=== PATIENT | female | born 1980 | race Hispanic/Latino ===

== ENCOUNTER 2017-03-30 12:10 | Emergency (ER) | payer OTHER ==
[2017-03-30 12:22] VITALS: BP 116/75; PULSE 101; RESP 18; TEMP 99.1; O2SAT 100
--- NOTE | 2017-03-30 13:10 | ED PDOC ---
HPI: General Adult Time Seen by Provider: 03/30/17 12:27 Chief Complaint (Nursing): Abnormal Skin Integrity Chief Complaint (Provider): Laceration to left 2nd digit History Per: Patient History/Exam Limitations: no limitations Onset/Duration Of Symptoms: Mins Have you had recent travel within the past 21 days to any of the following countries: [place], [place], [place] or [place]?: No Current Symptoms Are (Timing): Still Present Additional Complaint(s): The patient is a 36 y/o female, right hand dominant, past medical history of seizure disorder who presents to the ED for evaluation of laceration sustained to her left 2nd digit while cutting an avocado prior to arrival. Patient reports she took dilaudid after injury ocurred which she has at home for chronic pain. She additionally reports her last tetanus shot was 3 years ago. Patient currently denies any other medical complaints. She denies any associated numbnes or tingling to affected area. Past Medical History Reviewed: Historical Data, Nursing Documentation, Vital Signs Vital Signs: Last Vital Signs Temp 99.1 F 03/30/17 12:21 Pulse 101 H 03/30/17 12:21 Resp 18 03/30/17 12:21 BP 116/75 03/30/17 12:21 Pulse Ox 100 03/30/17 13:33 - Medical History PMH: Malignancy (brain CA), Seizures - Surgical History Other surgeries: Brain surgery x 4 - Family History Family History: States: No Known Family Hx, Unknown Family Hx - Living Arrangements Living Arrangements: With Family - Social History Current smoker - smoking cessation education provided: No Alcohol: None Drugs: Denies - Immunization History Hx Tetanus Toxoid Vaccination: Yes (last updated 3 years ago) - Home Medications Home Medications: Ambulatory Orders Medication Instructions Recorded Clonazepam [Klonopin] 0.5 mg PO BID 03/30/16 LORazepam [Ativan] 1 mg PO Q6 PRN 03/30/16 Lacosamide [Vimpat] 150 mg PO BID 03/30/16 Lamotrigine [Lamictal] 250 mg PO BID 03/30/16 - Allergies Allergies/Adverse Reactions: Allergies Allergy/AdvReac Type Severity Reaction Status Date / Time Sulfa (Sulfonamide Allergy RASH Verified 03/30/17 12:18 Antibiotics) Review of Systems ROS Statement: Except As Marked, All Systems Reviewed And Found Negative Skin: Positive for: Other (laceration to left 2nd digit) Physical Exam - Reviewed Nursing Documentation Reviewed: Yes Vital Signs Reviewed: Yes - Physical Exam Appears: Positive for: Well, Non-toxic, No Acute Distress Head Exam: Positive for: ATRAUMATIC, NORMAL INSPECTION, NORMOCEPHALIC Skin: Positive for: Normal Color Eye Exam: Positive for: Normal appearance Respiratory: Negative for: Respiratory Distress Extremity: Positive for: Normal ROM, Other (1.0 cm superficial laceration to left 2nd digit; minimal active bleeding. Full ROM of affected digit. Normal distal sensation) Neurologic/Psych: Positive for: Alert, Oriented - ECG O2 Sat by Pulse Oximetry: 100 (RA) Pulse Ox Interpretation: Normal Medical Decision Making Medical Decision Making: Time: 1235 Impression: Superficial laceration to left 2nd digit Plan: * Laceration to be repaired with dermabond Procedure note: Verbal consent was obtained for the procedure. Under sterile conditions, dermabond was used to close wound, good wound closure was achieved with dermabond, closure was then reinforced with steri-strips. Procedure was tolerated well by patient, no complications. Patient given detailed wound care instruction. Scribe Attestation: Documented by Kelsey Narayan acting as a scribe for RACHAEL Corona Provider Attestation: All medical record entries made by the Scribe were at my direction and personally dictated by me. I have reviewed the chart and agree that the record accurately reflects my personal performance of the history, physical exam, medical decision making, and the department course for this patient. I have also personally directed, reviewed, and agree with the discharge instructions and disposition. Disposition - Clinical Impression Clinical Impression: Finger laceration - Patient ED Disposition Is Patient to be Admitted: No Counseled Patient/Family Regarding: Diagnosis, Need For Followup - Disposition Referrals: [facility] [Outside] Disposition: Routine/Home Disposition Time: 13:58 Condition: STABLE Additional Instructions: Keep area clean and dry Allow steri-strips and excess glue to flake off on their own Wound check in 2-3 days Instructions: Finger Laceration (ED), Skin Adhesive Care (ED)
== END 2017-03-30 14:48 | disposition home or self-care (01) ==
LOC: H.ER 12:10
DX: S61.201A Unspecified open wound of left index finger without damage to nail, initial encounter (principal); W26.0XXA Contact with knife, initial encounter; Y92.89 Other specified places as the place of occurrence of the external cause; G40.909 Epilepsy, unspecified, not intractable, without status epilepticus; Z85.841 Personal history of malignant neoplasm of brain

== ENCOUNTER 2017-04-23 12:17 | Observation (INO) | payer OTHER ==
[2017-04-23 12:21] VITALS: BMI 20.8
--- NOTE | 2017-04-23 12:54 | ED PDOC ---
HPI: Seizure Time Seen by Provider: 04/23/17 12:26 Chief Complaint (Nursing): Seizure Chief Complaint (Provider): Seizure History Per: Patient, EMS History/Exam Limitations: no limitations Recent Seizure Activity Began: Just Before Arrival Number Of Seizures: One Length Of Seizures (Duration): Minutes (30) Quality Of Seizure: Generalized Additional Complaint(s): Bonny is a 36 y/o female who was brought by EMS for prolonged seizure lasting 30 minutes. Seizure was witnessed by EMS as generalized tonic-clonic, involving upper and lower extremities bilaterally. Patient has history of brain tumor with recurrent seizures, however current seizure is different than previous seizures. Previous seizures described as focal and left-sided lasting 2-3 minutes, as opposed to generalized today. Patient took sublingual Klonopin and PO Ativan, but seizure did not earline. Denies injury and biting tongue. PMD: Unknown Past Medical History Reviewed: Historical Data, Nursing Documentation, Vital Signs Vital Signs: Last Vital Signs Temp 99.8 F H 04/23/17 12:20 Pulse 100 H 04/23/17 12:20 Resp 16 04/23/17 12:20 BP 104/69 04/23/17 12:20 Pulse Ox 97 04/23/17 14:57 - Medical History PMH: Malignancy (Anaplastic ependymoma ), Seizures - Surgical History Other surgeries: s/p resection of brain cancer x3 - Family History Family History: States: Unknown Family Hx - Immunization History Hx Tetanus Toxoid Vaccination: Yes (last updated 3 years ago) - Home Medications Home Medications: Ambulatory Orders Medication Instructions Recorded Clonazepam [Klonopin] 0.5 mg PO BID 03/30/16 LORazepam [Ativan] 1 mg PO Q6 PRN 03/30/16 Lacosamide [Vimpat] 150 mg PO BID 03/30/16 Lamotrigine [Lamictal] 250 mg PO BID 03/30/16 - Allergies Allergies/Adverse Reactions: Allergies Allergy/AdvReac Type Severity Reaction Status Date / Time acetaminophen [From Vicodin] Allergy RASH Verified 04/23/17 12:45 hydrocodone [From Vicodin] Allergy RASH Verified 04/23/17 12:45 levetiracetam [From Keppra] Allergy RASH Verified 04/23/17 12:45 Sulfa (Sulfonamide Allergy RASH Verified 03/30/17 12:18 Antibiotics) sulfamethoxazole Allergy RASH Verified 04/23/17 12:45 [From Bactrim] trimethoprim [From Bactrim] Allergy RASH Verified 04/23/17 12:45 Review of Systems ROS Statement: Except As Marked, All Systems Reviewed And Found Negative Neurological: Positive for: Seizures (lasting 30 minutes). Negative for: Other (biting tongue, injury) Physical Exam - Reviewed Nursing Documentation Reviewed: Yes Vital Signs Reviewed: Yes - Physical Exam Appears: Positive for: Non-toxic, No Acute Distress Head Exam: Positive for: ATRAUMATIC, NORMAL INSPECTION (graft and artificial hair in place, no injury or bleeding noted), NORMOCEPHALIC Skin: Positive for: Normal Color, Warm, Dry Eye Exam: Positive for: Normal appearance, EOMI Neck: Positive for: Normal, Painless ROM, Supple Cardiovascular/Chest: Positive for: Regular Rate, Rhythm. Negative for: Murmur Respiratory: Positive for: Normal Breath Sounds. Negative for: Accessory Muscle Use, Respiratory Distress Gastrointestinal/Abdominal: Positive for: Normal Exam, Soft. Negative for: Tenderness Back: Positive for: Normal Inspection. Negative for: Vertebral Tenderness, Other (Deformity) Extremity: Positive for: Normal ROM, Other (Left upper and lower extremity weakness (old)) Neurologic/Psych: Positive for: Alert, Oriented (x 3) - Laboratory Results Result Diagrams: 04/23/17 12:10 04/23/17 12:10 - ECG O2 Sat by Pulse Oximetry: 97 (RA) Pulse Ox Interpretation: Normal Medical Decision Making Medical Decision Making: Time: 12:45 Initial Plan: --CMP --CBC w/ differential --ED Urine --Pending Head CT w/o contrast --Reevaluation Time: 14:[address] w/o contrast: FINDINGS: HEMORRHAGE: Heterotopic calcification is favored over hemorrhage within the subcortical white matter of a few sulci at the right frontal vertex. The patient is status post right frontal craniotomy with a bit of air identified. There is a 1.1 x 1.6 region of prominent lucency at the posterior margins of the prior operative site which measures 1.1 x 1.6 cm and 95 Hounsfield units compared to -1000 for air. This represents fat. Likely post radiation related vasogenic edema or reaction is seen in the white matter throughout the vast majority of the right frontal lobe however there only limited mass effect with the right lateral ventricle symmetric when compared to the left. The sulci arm mildly effaced at the right frontal lobe. Posterior fossa contents are stable with the left cerebral hemisphere normal. BRAIN: As above. VENTRICLES: Unremarkable. No hydrocephalus. CALVARIUM: Unremarkable. PARANASAL SINUSES: Unremarkable as visualized. No significant inflammatory changes. MASTOID AIR CELLS: Unremarkable as visualized. No inflammatory changes. OTHER FINDINGS: None. IMPRESSION: [id number] but expansive reaction/vasogenic edema affects the right frontal lobe status post right frontal surgery and craniotomy probably on the basis of post radiation change in this patient with prior surgery for brain tumor right frontal lobe. Acute intracranial hemorrhage is not favored as likely heterotopic calcifications seen the subcortical sulci and minimally at the right frontal vertex. Follow-up CT is advised. A small amount of fat is seen filling the likely postoperative bed at the right frontal vertex posteriorly. Scribe Attestation: Documented by Evonne Steel, acting as a scribe for Sigifredo Lazar MD Provider Scribe Attestation: All medical record entries made by the Scribe were at my direction and personally dictated by me. I have reviewed the chart and agree that the record accurately reflects my personal performance of the history, physical exam, medical decision making, and the department course for this patient. I have also personally directed, reviewed, and agree with the discharge instructions and disposition. Disposition - Clinical Impression Clinical Impression: Seizure disorder, Recurrent seizures - Patient ED Disposition Is Patient to be Admitted: Yes - Disposition Disposition Time: 15:10 Condition: FAIR Forms: Exhibition A ([place]) - Pt Status Changed To: Hospital Disposition Of: Observation - POA Present On Arrival: None
[2017-04-23 13:00] LABS: BASO # 0.1 K/uL (0.0-0.2); BASO % 0.9 % (0.0-2.0); EOS % 0.3 % (0.0-4.0); HEMOGLOBIN 10.5 g/dL (12.0-16.0); LYMPH # 1.1 K/uL (1.0-4.3); LYMPH % 17.4 % (20.0-40.0); MEAN CELL VOLUME 78.6 fl (81.0-99.0); MEAN CORPUSCULAR HEMOGLOBIN 25.2 pg (27.0-31.0); MEAN CORPUSCULAR HGB CONC 32.1 g/dL (33.0-37.0); MEAN PLATELET VOLUME 7.8 fl (7.2-11.7); MONO # 0.5 K/uL (0.0-0.8); MONO % 7.1 % (0.0-10.0); NEUT # 4.9 K/uL (1.8-7.0); NEUT % 74.3 % (50.0-75.0); RBC 4.17 Mil/uL (3.80-5.20); WHITE BLOOD COUNT 6.6 K/uL (4.8-10.8)
[2017-04-23 13:11] LABS: ALB/GLOB RATIO 1.7 (1.0-2.1); ALBUMIN 4.6 g/dL (3.5-5.0); ALT/SGPT 37 U/L (9-52); AST/SGOT 28 U/L (14-36); BLOOD UREA NITROGEN 13 mg/dl (7-17); CALCIUM 9.6 mg/dL (8.4-10.2); GFR AFRICAN-AMERICAN > 60; GFR NON-AFRICAN AMERICAN > 60
--- NOTE | 2017-04-23 14:51 | CT ---
PROCEDURE: CT HEAD WITHOUT CONTRAST. HISTORY: seizure h/o brain tumor COMPARISON: Brain MRI 12/18/[address] 12/17/2013. TECHNIQUE: Axial computed tomography images were obtained through the head/brain without intravenous contrast. Radiation dose: Total exam DLP = 960 mGy-cm. This CT exam was performed using one or more of the following dose reduction techniques: Automated exposure control, adjustment of the mA and/or kV according to patient size, and/or use of iterative reconstruction technique. FINDINGS: HEMORRHAGE: Heterotopic calcification is favored over hemorrhage within the subcortical white matter of a few sulci at the right frontal vertex. The patient is status post right frontal craniotomy with a bit of air identified. There is a 1.1 x 1.6 region of prominent lucency at the posterior margins of the prior operative site which measures 1.1 x 1.6 cm and 95 Hounsfield units compared to -1000 for air. This represents fat. Likely post radiation related vasogenic edema or reaction is seen in the white matter throughout the vast majority of the right frontal lobe however there only limited mass effect with the right lateral ventricle symmetric when compared to the left. The sulci arm mildly effaced at the right frontal lobe. Posterior fossa contents are stable with the left cerebral hemisphere normal. BRAIN: As above. VENTRICLES: Unremarkable. No hydrocephalus. CALVARIUM: Unremarkable. PARANASAL SINUSES: Unremarkable as visualized. No significant inflammatory changes. MASTOID AIR CELLS: Unremarkable as visualized. No inflammatory changes. OTHER FINDINGS: None. IMPRESSION: [id number] but expansive reaction/vasogenic edema affects the right frontal lobe status post right frontal surgery and craniotomy probably on the basis of post radiation change in this patient with prior surgery for brain tumor right frontal lobe. Acute intracranial hemorrhage is not favored as likely heterotopic calcifications seen the subcortical sulci and minimally at the right frontal vertex. Follow-up CT is advised. A small amount of fat is seen filling the likely postoperative bed at the right frontal vertex posteriorly.
--- NOTE | 2017-04-23 16:04 | CP.PCM.CON ---
History of Present Illness - History of Present Illness History of Present Illness: Ms. Hernandez is a 36-year-old woman with a past medical history of right parietal lobe anaplastic ependymoma, s/p two resections and two other neurosurgical procedures to treat post-surgical infections, who developed epilepsy of focal onset and is on Vimpat, Lamictal and Topamax. She usually has an aura of an overwhelming sensation followed by left arm contraction and convulsion. However, for the past 3 days, she has had diplopia, ataxia and feeling unstable. She had an episode this morning that resulted in a prolonged , witnessed, generalized tonic-clonic seizures. This event reportedly lasted about 25-30 minutes in total. At the onset, she took 0.5 mg sublingual Klonapin. Then, she took 1 mg of Ativan. She was brought to the ED. Since being here, she has not had any seizures. Her neuro-oncologist was contacted and asked for us to observe the patient for 24 hours and if she does not have seizures, we can discharge her to follow up with him on Wednesday. She also has an epileptologist, Dr. Aly, in [facility] who is following up with her. Currently , the patient is at baseline and doing well with no complaints. Review of Systems - Review of Systems All systems: reviewed and no additional remarkable complaints except Past Patient History - Past Social History Smoking Status: Unknown If Ever Smoked - NEUROLOGICAL Hx Seizures: Yes - PSYCHIATRIC Hx Substance Use: No - SURGICAL HISTORY Other/Comment: CRANIOTOMY 2013, 01/17/2016 - ANESTHESIA Hx Anesthesia: Yes Hx Anesthesia Reactions: No Meds Allergies/Adverse Reactions: Allergies Allergy/AdvReac Type Severity Reaction Status Date / Time acetaminophen [From Vicodin] Allergy RASH Verified 04/23/17 12:45 hydrocodone [From Vicodin] Allergy RASH Verified 04/23/17 12:45 levetiracetam [From Keppra] Allergy RASH Verified 04/23/17 12:45 Sulfa (Sulfonamide Allergy RASH Verified 03/30/17 12:18 Antibiotics) sulfamethoxazole Allergy RASH Verified 04/23/17 12:45 [From Bactrim] trimethoprim [From Bactrim] Allergy RASH Verified 04/23/17 12:45 Physical Exam - Constitutional Appears: Well - Head Exam Additional comments: Right cranial scars noted from prior surgeries. - Eye Exam Eye Exam: EOMI, Normal appearance, PERRL - ENT Exam ENT Exam: Mucous Membranes Moist, Normal Exam - Neck Exam Neck exam: Positive for: Normal Inspection - Respiratory Exam Respiratory Exam: Clear to Auscultation Bilateral, NORMAL BREATHING PATTERN - Cardiovascular Exam Cardiovascular Exam: REGULAR RHYTHM, +S1, +S2 - GI/Abdominal Exam GI & Abdominal Exam: Normal Bowel Sounds, Soft. absent: Tenderness - Rectal Exam Rectal Exam: Deferred - Extremities Exam Extremities exam: Positive for: normal inspection - Back Exam Back exam: NORMAL INSPECTION - Neurological Exam Neurological exam: Abnormal Gait, CN II-XII Intact, Oriented x3 Additional comments: Chronic foot drop on left is noted - Expanded Neurological Exam Expanded Patient oriented to: person, place, time Cranial nerves: EOM's Intact: Normal, Facial Palsey w/Forehead Movement: Normal , Nystagmus: Normal Ataxia: No Upper motor neuron: Babinski Sign: Abnormal Left, Hector Neglect: Normal, Pronator Drift: Abnormal Left, Sensory Extinction: Abnormal Left Sensory exam: Lower Extremity Light Touch: Normal, Lower Extremity Pin Prick: Normal, Upper Extremity Light Touch: Normal, Upper Extremity Pin Prick: Normal Neuro motor strength exam: Left Upper Extremity: 4, Right Upper Extremity: 5, Left Lower Extremity: 4, Right Lower Extremity: 5 DTR: Achilles Tendon Left: 3+ (upgoing plantar response), Achilles Tendon Right : 2+, Bicep Left: 3+, Bicep Right: 2+, Brachioradialis Left: 3+, Brachioradialis Right: 2+, Patellar Left: 3+, Patellar Right: 2+, Tricep Left: 3 +, Tricep Right: 2+ - Psychiatric Exam Psychiatric exam: Normal Affect, Normal Mood - Skin Skin Exam: Dry, Intact, Normal Color, Warm Results - Vital Signs Recent Vital Signs: Last Vital Signs Temp 99.8 F H 04/23/17 12:20 Pulse 100 H 04/23/17 12:20 Resp 16 04/23/17 12:20 BP 104/69 04/23/17 12:20 Pulse Ox 97 04/23/17 15:10 - Labs Result Diagrams: 04/23/17 12:10 04/23/17 12:10 - Imaging and Cardiology CT scan - head Status: Image reviewed by me, Report reviewed by me (Post surgical changes and significant vasogenic appearing edema in right frontal/parietal region. No hemorrhage.) Assessment & Plan (1) Recurrent seizures Assessment and Plan: Will admit the patient for 24-hour observation and continue her home seizure medications. She has a follow-up appointment with neuro-oncology and epileptologist. Will give her 1 mg of ativan IV for seizure aura when she complains of it. PT/OT eval. DVT Px. Thank you. Status: Acute Priority: High
[2017-04-23] MEDS ORDERED: Naproxen 500 MG TAB PO PRN (17:56)
[2017-04-23 18:20] LABS: T4 8.56 ug/dl (5.5-11.0)
[2017-04-23 18:34] LABS: T3 1.05 nmol/L (1.49-2.60)
[2017-04-23] MEDS: Lacosamide 50 MG Tab PO SCH (21:04)
[2017-04-24 08:17] VITALS: RESP 20; O2SAT 99
[2017-04-24] MEDS: Lacosamide 50 MG Tab PO SCH ×2 (09:39→17:03)
[2017-04-24 10:22] LABS: HEMOGLOBIN 9.9 g/dL (12.0-16.0); MEAN CELL VOLUME 79.1 fl (81.0-99.0); MEAN CORPUSCULAR HEMOGLOBIN 24.9 pg (27.0-31.0); MEAN CORPUSCULAR HGB CONC 31.5 g/dL (33.0-37.0); RBC 3.98 Mil/uL (3.80-5.20); RED CELL DISTRIBUTION WIDTH 18.2 % (11.5-14.5); WHITE BLOOD COUNT 5.3 K/uL (4.8-10.8)
[2017-04-24 10:42] LABS: ALB/GLOB RATIO 1.6 (1.0-2.1); ALBUMIN 4.2 g/dL (3.5-5.0); ALT/SGPT 37 U/L (9-52); AST/SGOT 25 U/L (14-36); BLOOD UREA NITROGEN 9 mg/dl (7-17); CALCIUM 9.1 mg/dL (8.4-10.2); GFR AFRICAN-AMERICAN > 60; GFR NON-AFRICAN AMERICAN > 60
--- NOTE | 2017-04-24 15:40 | HP ---
CHIEF COMPLAINT: Multiple seizures. HISTORY OF PRESENT ILLNESS: The patient is a 36-year-old female known case of anaplastic ependymoma. The past history of multiple brain surgery for the similar condition and also who has developed seizures and he is currently being treated by [facility] including epileptologist and who had an episode of seizures yesterday morning. She will be followed by tonic clonic seizures. The patient was going to emergency room and also admitted for further management. REVIEW OF SYSTEMS: She is positive for seizures and review of systems otherwise is negative for headache, dizziness, syncope, loss of consciousness, chest pain, shortness of breath, nausea, vomiting, diarrhea, constipation and any knee joint, or extremity pain. Review of systems of all other organ systems is unremarkable. PAST MEDICAL HISTORY: Significant for anaplastic ependymoma. PAST SURGICAL HISTORY: Remarkable for multiple craniotomies. PERSONAL HISTORY: The patient is currently nonsmoker, nondrinker. No substance abuse. MEDICATIONS: The patient is on vitamin Keppra, Vimpat, Bactrim, Lamictal, and Topamax. ALLERGIES: THE PATIENT IS ALLERGIC TO VICODIN, KEPPRA, AND BACTRIM. MEDICATIONS: The patient is on Lamictal, Topamax, and Vimpat. FAMILY HISTORY: Noncontributory. PHYSICAL EXAMINATION: GENERAL: A 36-year-old female in no acute distress. VITAL SIGNS: Temperature 97.7, pulse 86, respirations 18, blood pressure 102/69. HEENT: The patient is status post craniotomy. NECK: No JVD. No thyromegaly. No lymphadenopathy. HEART: S1 and S2 normal and regular. LUNGS: Good bilateral air exchange ABDOMEN: Soft, nontender. No organomegaly and no bruits. Bowel sounds are plus. EXTREMITIES: No edema. No calf swelling. No tenderness. No acute ischemia. CENTRAL NERVOUS SYSTEM: Essentially unchanged and there is no sign of any acute gross psychomotor, motor or sensory neurological deficits. DIAGNOSTIC DATA: Available diagnostic data reviewed. Telemetry monitoring did not reveal significant arrhythmias. WBC is 6.2, hemoglobin 10.5, hematocrit 32.7, platelet 338. Sodium 142, potassium 3.7, chloride 106, bicarb 25, BUN 13, creatinine 0.7. SMA-12 is otherwise unremarkable. Vitamin B12 level is low up to 196, TSH level is 1.41. Neurological consult noted and appreciated. CAT scan of head is consisting 3 years craniotomy. No acute hemorrhage. ADMITTING IMPRESSION: 1. Seizure disorder. 2. Anaplastic ependymoma. PLAN: As ordered. Case and plan discussed with patient. Lanre Apple MD
[2017-04-24 16:04] VITALS: BP 99/63; PULSE 89; TEMP 98.1
--- NOTE | 2017-04-24 17:11 | CP.PCM.PN ---
Subjective - Date & Time of Evaluation Date of Evaluation: 04/24/17 Time of Evaluation: 17:10 - Subjective Subjective: Ms. Contreras was seen and examined today at bedside. She has not had any new focal or generalized seizures since being in the hospital. There were no acute events overnight. Objective - Vital Signs/Intake and Output Vital Signs (last 24 hours): Temp Pulse Resp BP Pulse Ox 98.1 F 89 20 99/63 L 99 04/24/17 16:04 04/24/17 16:04 04/24/17 16:04 04/24/17 16:04 04/24/17 16:04 - Medications Medications: Current Medications Baclofen (Lioresal) 5 mg PO Q12H [facility] Last Admin: 04/24/17 06:20 Dose: 5 mg Clonazepam (Klonopin) 0.25 mg PO QAM [facility] Last Admin: 04/24/17 09:35 Dose: 0.25 mg Clonazepam (Klonopin) 0.5 mg PO HS [facility] Last Admin: 04/23/17 21:02 Dose: 0.5 mg Clonazepam (Klonopin) 0.5 mg PO DAILY PRN PRN Reason: breakthrough seizure Cyanocobalamin (Vitamin B12 1000 Mcg/Ml Inj) 1,000 mcg IM DAILY [facility] Last Admin: 04/24/17 09:36 Dose: 1,000 mcg Escitalopram Oxalate (Lexapro) 20 mg PO DAILY [facility] Last Admin: 04/24/17 09:34 Dose: 20 mg Hydromorphone HCl (Dilaudid) 2 mg PO Q6H PRN PRN Reason: Pain, severe (8-10) Lamotrigine (Lamictal) 300 mg PO BID [facility] Last Admin: 04/24/17 17:03 Dose: Not Given Lorazepam (Ativan) 1 mg IVP Q1H PRN PRN Reason: aura/seizure Naproxen (Naproxen) 500 mg PO BID PRN PRN Reason: Pain, moderate (4-7) Topiramate (Topamax) 50 mg PO Q12H [facility] Last Admin: 04/24/17 06:21 Dose: 50 mg - Labs Labs: 04/24/17 09:00 04/24/17 09:00 - Neurological Exam Additional comments: Neurologically unchanged compared with previous examination. Assessment and Plan (1) Recurrent seizures Assessment & Plan: Follow up with outpatient epileptologist and neuro-oncologist. No further recommendations at this time. Status: Acute
== END 2017-04-24 17:54 | disposition home or self-care (01) ==
LOC: H.ER 12:17 → H.ERHOLD 15:09 → H.TEL 17:03
PROVIDERS: ADMIT Internal Medicine; ATTEND Internal Medicine
DX: G40.409 Other generalized epilepsy and epileptic syndromes, not intractable, without status epilepticus (principal); Z85.841 Personal history of malignant neoplasm of brain